=== PATIENT | male | born 1970 | race Caucasian/White ===

== ENCOUNTER 2021-07-01 08:51 | Emergency (ER) | payer OTHER ==
[~2021-07-01] VITALS: Ht 185.4 cm; Wt 88.6 kg
[2021-07-01] VITALS (14 sets, daily range): BP systolic 90–113; BP diastolic 65–82
[2021-07-01 10:14] LABS: HEMATOCRIT 45.6 % (39.0-50.0); HEMOGLOBIN 15.1 g/dl (14.0-18.0); IMMATURE GRANULOCYTES 0.4 % (0.0-5.0); MEAN CELL VOLUME 93.4 fL CALC (80.0-100.0); MEAN CORPUSCULAR HGB 30.9 pG CALC (26.0-32.0); MEAN CORPUSCULAR HGB CONC 33.1 g/dL CAL (32.0-36.0); NEUT# 14.56 thou/uL (1.82-7.42); RED BLOOD COUNT 4.88 mill/uL (4.70-6.10)
[2021-07-01 10:32] LABS: URINE BILIRUBIN - DIPSTICK NEGATIVE (NEGATIVE); URINE BLOOD DIPSTICK SMALL (NEGATIVE); URINE COLOR YELLOW; URINE GLUCOSE - DIPSTICK 250 mg/dL (NEGATIVE); URINE KETONE NEGATIVE (NEGATIVE); URINE LEUK ESTERASE NEGATIVE (NEGATIVE); URINE PH 5.5 (4.5-8.0); URINE PROTEIN - DIPSTICK TRACE mg/dL (NEG-TRACE); URINE SPECIFIC GRAVITY >=1.030; URINE UROBILINOGEN - DIPSTICK 0.2 E.U./dL (0.2)
[2021-07-01 10:39] LABS: URINE NITRITE - DIPSTICK NEGATIVE (Negative)
[2021-07-01 10:40] LABS: URINE RBC 0-2 RBC/hpf (0-5)
[2021-07-01 10:41] LABS: ALBUMIN 4.1 g/dL (3.2-5.0); ALKALINE PHOSPHATASE 65 u/l (38-126); ANION GAP 14 (6-22 (CALC)); BILIRUBIN, TOTAL 0.4 mg/dL (0.0-1.4); BUN 19 mg/dL (9-20); BUN/CREATININE RATIO 18 (12-20 (CALC)); CARBON DIOXIDE 26 mmol/l (22-30); CHLORIDE 103 mmol/l (95-108); CREATININE 1.1 mg/dL (0.7-1.3); GFR > 60 ML/MIN (>=60 (CALC)); GFR FOR AFR.AMER. > 60 ML/MIN (>=60 (CALC)); POTASSIUM 3.6 mmol/l (3.5-5.1); SGOT/AST 62 u/l (17-59); SODIUM 139 mmol/l (137-146); TOTAL PROTEIN 6.9 g/dL (6.3-8.2)
[2021-07-01 10:41] LABS: URINE EPITHELIAL CELLS FEW EPI/hpf (0-FEW)
[2021-07-01 10:55] LABS: MYOGLOBIN > 2000 ng/mL (0 - 121)
== END 2021-07-01 14:55 | disposition short-term general hospital (02) | DRG 124 ==
LOC: ED 08:51
PROVIDERS: Emergency Medicine
DX: S02.32XA Fracture of orbital floor, left side, initial encounter for closed fracture (principal); J18.9 Pneumonia, unspecified organism; R09.02 Hypoxemia; R79.89 Other specified abnormal findings of blood chemistry; S00.12XA Contusion of left eyelid and periocular area, initial encounter; B19.20 Unspecified viral hepatitis C without hepatic coma; W18.39XA Other fall on same level, initial encounter; Y92.143 Cell of prison as the place of occurrence of the external cause
CPT/HCPCS: Q9967